=== PATIENT | male | born 1995 | race Caucasian/White ===

== ENCOUNTER 2017-10-20 18:41 | Emergency (ER) | payer SELFPAY ==
[2017-10-20 18:55] VITALS: BP 142/76
--- NOTE | 2017-10-20 20:42 | ER Document Report ---
HPI - HPI Pain Level: 4 Notes: Patient is a 21-year-old male who presents the ED complaining of right anterior knee redness, pain 2 days. Patient states that hair follicle started getting red and swollen initially which then led to more surrounding redness and pain. Patient states that he is still able to ambulate without any difficulties. She only has pain when he pushes on his skin or if he stretches his skin as in knee flexion. He is still eating and drinking identical days. He is urinating normally. He has not noticed any red streaks, abscess, or purulent discharge. Patient denies any history of MRSA. Patient states he was in the [place], but does not remember any insect bite to that area prior. Patient states that he scanned his skin thoroughly after he got the [place] and did not notice any barnes or ticks. Denies any drug allergies. Denies any headache, fever, URI, sore throat, chest pain, palpitations, syncope, cough, shortness of breath, wheeze, dyspnea, abdominal pain, nausea/vomiting/diarrhea, urinary retention, dysuria, hematuria, loss of control of bowel or bladder, numbness/tingling, saddle anesthesia, muscle paralysis/weakness, or rash. - ROS Systems Reviewed and Negative: Yes All other systems reviewed and negative - CONSTITUTIONAL Constitutional: DENIES: Fever, Chills - MUSCULOSKELETAL Musculoskeletal: REPORTS: Extremity pain - R knee Past Medical History - Social History Smoking Status: Never Smoker Chew tobacco use (# tins/day): No Frequency of alcohol use: None Drug Abuse: None Family History: Reviewed & Not Pertinent Patient has suicidal ideation: No Patient has homicidal ideation: No Renal/ Medical History: Denies: Hx Peritoneal Dialysis Vertical Provider Document - CONSTITUTIONAL Agree With Documented VS: Yes Notes: PHYSICAL EXAMINATION: GENERAL: Well-appearing, well-nourished and in no acute distress. LUNGS: Breath sounds clear to auscultation bilaterally and equal. No wheezes rales or rhonchi. HEART: Regular rate and rhythm without murmurs, rubs, gallops. Musculoskeletal: Rt knee: FROM to passive/active. Strength 5+/5. No joint effusion, or swelling inside of the knee itself. There appears to be a superficial cellulitis, however. No abscess, induration, or purulent discharge. No streaks. + tenderness and mild warmth superficially. Extremities: No cyanosis, clubbing, or edema b/l. Peripheral pulses 2+. Capillary refill less than 3 seconds. NEUROLOGICAL: Normal speech, normal gait. Normal sensory, motor exams PSYCH: Normal mood, normal affect. SKIN: see MSk exam. Warm, Dry, normal turgor, no rashes or lesions noted. - INFECTION CONTROL TRAVEL OUTSIDE OF THE [place] IN LAST 30 DAYS: No - RESPIRATORY O2 Sat by Pulse Oximetry: 100 Course - Re-evaluation Re-evalutation: 10/20/17 20:49 Patient is an afebrile, well-hydrated, 21-year-old male who presents to the ED with a superficial cellulitis to the right anterior knee. Vitals are stable. PE is otherwise unremarkable. At this time, I do not suspect any knee joint effusion or septic joint. Low suspicion for any other sepsis or other acute systemic condition. 1 tablet of Keflex and Bactrim DS was given today. I will send him home with a prescription for continued Keflex and Bactrim. Conservative measures for symptoms. Recheck with your PCM/ED in 2-3 days. Return to the ED with any worsening/concerning symptoms otherwise as reviewed discharge. Patient is in agreement. - Vital Signs Vital signs: Temp Pulse Resp BP Pulse Ox 99.4 F 100 16 142/76 H 100 10/20/17 18:54 10/20/17 18:54 10/20/17 18:54 10/20/17 18:54 10/20/17 18:54 Discharge - Discharge Clinical Impression: Cellulitis Qualifiers: Site of cellulitis: extremity Site of cellulitis of extremity: lower extremity Laterality: right Qualified Code(s): L03.115 - Cellulitis of right lower limb Condition: Stable Disposition: HOME, SELF-CARE Instructions: Cellulitis ([facility]), Cephalexin ([facility]) Additional Instructions: Keep the skin clean Wash with soap and water Tylenol/ibuprofen if needed Epsom salt soaks Triple antibiotic ointment daily Take medication as directed Monitor for any worsening symptoms Recheck with your PCM in 3-5 days Consider consult with orthopedics for ongoing/worsening symptoms Return to the ED with any worsening symptoms and/or development of fever, headache, chest pain, palpitations, syncope, shortness of breath, trouble breathing, abdominal pain, n/v/d, abscess, purulent discharge, red streaks, worsening swelling, or other worsening symptoms that are concerning to you. Prescriptions: Cephalexin Monohydrate [Keflex 500 mg Capsule] 500 mg PO TID #30 capsule Sulfamethoxazole/Trimethoprim [Bactrim Ds Tablet] 1 each PO BID #20 tablet Forms: Elevated Blood Pressure Referrals: [facility] [Provider Group] - Follow up as needed [facility] [Provider Group] - Follow up as needed [facility] [Provider Group] - Follow up as needed
[2017-10-20] MEDS ORDERED: CEPHALEXIN 500 MG CAPSULE PO ONE (20:45)
[2017-10-20] MEDS ORDERED: SULFAMETHOXAZOLE/TRIMETHOPRIM 800-160 MG TABLET PO ONE (20:46)
== END 2017-10-20 20:59 | disposition home or self-care (01) ==
LOC: ER 18:41
DX: L03.115 Cellulitis of right lower limb (principal)
CPT/HCPCS: 99283